=== PATIENT | male | born 1965 | race Caucasian/White ===

== ENCOUNTER 2017-09-25 22:27 | Observation (INO) | payer SELFPAY ==
[2017-09-26 00:35] LABS: Troponin I Less than 0.010 ng/mL (< 0.028)
[2017-09-26 00:41] LABS: Magnesium 2.6 mg/dL (1.6-2.6); Phosphorus 4.1 mg/dL (2.3-4.7)
[2017-09-26] MEDS ORDERED: Sodium Chloride 0.9% 1,000 ML IV SCH (02:38)
[2017-09-26] MEDS ORDERED: Ondansetron HCl/PF 4 MG/2 ML Vial IVP PRN ×2 (02:38→11:30)
[2017-09-26] MEDS ORDERED: Ondansetron ODT 4 MG TAB SL PRN (02:38)
[2017-09-26] MEDS ORDERED: Acetaminophen 325 MG TAB PO PRN ×2 (02:38→05:06)
[2017-09-26 02:44] VITALS: BMI 32.5
[2017-09-26 05:02] LABS: Troponin I Less than 0.010 ng/mL (< 0.028)
[2017-09-26] MEDS ORDERED: Calcium Carbonate 500 MG ChewTAB PO PRN (05:06)
[2017-09-26] MEDS ORDERED: Mag-Al 1200 mg/1200 mg/30 ML UDCUP PO PRN (05:06)
[2017-09-26] MEDS ORDERED: Senokot 8.6 MG TAB PO PRN (05:06)
[2017-09-26] MEDS ORDERED: Nitroglycerin 0.4 MG TAB (25 Tab Bottle) PO PRN (05:06)
[2017-09-26] MEDS ORDERED: Pantoprazole 40 MG VIAL IVP SCH (05:15)
[2017-09-26] MEDS ORDERED: Lidocaine 2% Viscous Solution 10 ML, Aluminum & Magnesium Hydroxide 30 ML SSW SCH (05:15)
--- NOTE | 2017-09-26 06:02 | HP ---
DATE OF ADMISSION: 09/26/2017 CHIEF COMPLAINT: Epigastric discomfort. PRIMARY CARE PHYSICIAN: [facility]. HISTORY OF PRESENT ILLNESS: The patient is a 52-year-old male with COPD who presented to the emergen cy room at [place] with above complaints. Over the last one week, the patient has on and off epigastric cramping that is radiating to his back. The pain improves when he bends over. No nausea, vomiting, diarrhea, constipation, palpitations, s yncope, recent immobilization, travel reported. In the emergency room at [place], his initial vital signs showed temperature 98.1, respiration of 22, pulse rate of 93, blood pressure of 134/88 with O2 saturation 98% on room air. His EKG showed sinus bradycardia without significant ST-T wave changes. Troponins were negative. His CK-MB was 8.2. He received GI cocktail, Motrin, and Pepcid. His pain improved with GI cocktail. He was transferred to this facility for hospital admission. PAST MEDICAL HISTORY: 1. COPD. 2. History of seizure disorder in the remote past. PAST SURGICAL HISTORY: Reviewed with the patient and none. ALLERGIES: No known drug allergies. SOCIAL HISTORY: Patient currently lives at home with his family. No smoking or drug use. He drinks alcohol rarely. FAMILY HISTORY: Patient is adopted. REVIEW OF SYSTEMS: The following complete review of systems was negative, unless otherwise mentioned in the HPI or below: Constitutional: Weight loss or gain, ability to conduct usual activities. Sk in: Rash, itching. Eyes: Double vision, pain. ENT/Mouth: Nose bleeding, neck stiffness, pain, te nderness. Cardiovascular: Palpitations, dyspnea on exertion, orthopnea. Respiratory: Shortness of breath, wheezing, cough, hemoptysis, fever or night sweats. Gastrointestinal: Poor appetite, abdom inal pain, heartburn, nausea, vomiting, constipation, or diarrhea. Genitourinary: Urgency, frequenc y, dysuria, nocturia. Musculoskeletal: Pain, swelling. Neurologic/Psychiatric: Anxiety, depressio n. Allergy/Immunologic: Skin rash, bleeding tendency. PHYSICAL EXAMINATION: VITAL SIGNS: As discussed above. GENERAL: A 52-year-old male in no apparent distress. Denies any symptoms at this time. HEENT: Head: Atraumatic, normocephalic. Sclerae are anicteric. Moist mucous membrane. No oral le neela. NECK: Supple, no JVD appreciated. No carotid bruit. LUNGS: Clear to auscultation bilaterally. No wheezing, rales, or rhonchi. HEART: S1, S2 present. Regular rate and rhythm. No murmur, rubs, or gallops or chest wall tenderne ss noted. ABDOMEN: Mild epigastric tenderness without any rebound or guarding. No costovertebral angle tender ness. Bowel sounds present. EXTREMITIES: No edema or calf tenderness. MUSCULOSKELETAL: No joint swelling or tenderness. There was no paraspinal tenderness. SKIN: Warm and dry. LYMPH NODES: No palpable lymph nodes in the neck. PERIPHERAL VASCULAR: Radial pulses palpable bilaterally. NEUROLOGIC: Grossly nonfocal. Moves all four extremities. PSYCHIATRIC: Alert, awake, oriented x3. LABORATORY AND X-RAY FINDINGS: CBC showed WBC 7.3 with hemoglobin 14.3, hematocrit 42.8, platelet co unt of 250,000. Chemistries showed sodium 140, potassium 4, chloride 106, bicarbonate 23, BUN of 15, creatinine 1.43 with glucose of 106. EKG by my review as discussed above. Chest x-ray by my review was negative for infiltrate. CT scan of the abdomen and pelvis by my review was negative for acute findings. There was a 9-mm stable cystic lesion in the body of the pancreas. There was also some fl uid density collection in the right retroperitoneum. IMPRESSION AND PLAN: 1. Chest/epigastric discomfort with abnormal CK-MB. His symptoms probably GI in origin. Two sets o f troponins have been negative. We will repeat another set. He was advised to discontinue nonsteroi lito anti-inflammatory drugs. He takes BC powder rarely. We will start him on IV PPIs. GI cocktail as needed. IV fluids will be started. The patient will be kept n.p.o. Other possibility for his cr ampy epigastric discomfort could be radiculopathy. 2. Chronic obstructive pulmonary disease. We will resume his home medications with p.r.n. nebulizer treatments. 3. Chronic kidney disease, stage 3, with avoid nephrotoxic agents. 4. Elevated CK and CK-MB. The patient denies any recent muscle exertion. His CK-MB has improved. We will continue IV hydration. 5. History of seizure disorder in remote past. 6. Sinus bradycardia, asymptomatic. Plan of care was discussed with the patient in detail. He stated understanding.
[2017-09-26] MEDS ORDERED: Aspirin 81 mg Enteric Coated Tablet PO SCH (09:00)
[2017-09-26] MEDS ORDERED: Aspirin 325 MG TAB PO SCH (09:00)
[2017-09-26] MEDS ORDERED: Lidocaine 1% PF 5 ML VIAL ONE (10:08)
[2017-09-26] MEDS ORDERED: PROPOFOL 200 MG/20 ML VIAL ONE (10:08)
[2017-09-26] MEDS ORDERED: Promethazine HCl 25 MG/ML VIAL IM PRN (11:30)
[2017-09-26] MEDS ORDERED: Promethazine HCl 25 MG/ML VIAL SLOW IVP PRN (11:30)
--- NOTE | 2017-09-26 11:39 | CON ---
DATE OF CONSULTATION: 09/26/2017 GASTROENTEROLOGY CONSULTATION CHIEF COMPLAINT: Abdominal pain. HISTORY OF PRESENT ILLNESS: Mr. Combs is a 52-year-old man who presented to the emergency room with 1 week history of epigastric to left upper quadrant cramping abdominal pain. The pain is intermitte nt and lasts for minutes to hours at a time and is not affected by eating. He has had normal bowel m ovements, soft daily brown stools without blood in the stool. He has had no weight loss associated w ith this. No prior similar abdominal pain. He has taken BC powder for a toothache a couple of times over the last week which is new for him. He got a GI cocktail in the ER which helped along with renetta e Pepcid. He has had no vomiting or hematemesis. No heartburn at baseline. No dysphagia. PAST MEDICAL HISTORY: COPD, history of seizure disorder. PAST SURGICAL HISTORY: Negative. FAMILY HISTORY: Adopted. ALLERGIES: No known drug allergies. SOCIAL HISTORY: Quit smoking 3 years ago. No drugs. He drinks a couple of beers once a week. MEDICATIONS: Albuterol. REVIEW OF SYSTEMS: Negative x10 systems reviewed except as stated in history of present illness. PHYSICAL EXAMINATION: VITAL SIGNS: Temperature 98.2, pulse 70, and blood pressure 122/62. GENERAL: He is in no acute distress, alert and oriented x3. HEENT: Eyes have no scleral icterus. Oropharynx is clear without lesions. NECK: No cervical or supraclavicular lymphadenopathy. LUNGS: Clear to auscultation bilaterally. HEART: Regular rate and rhythm. ABDOMEN: Has mild tenderness in the epigastric region without guarding. Bowel sounds are present. EXTREMITIES: No lower extremity edema. LABORATORY DATA AND IMAGING DATA: White blood cell count 7.3, hemoglobin 14.3, platelets 250, eosino kareem count is normal. Creatinine 1.43, bilirubin 0.4, AST 44, ALT 49, alkaline phosphatase 74, AST w as 37 back in 01/2017 and 12 in 11/2014. He had a CT scan of the abdomen and pelvis yesterday which showed a 9 mm cystic lesion in the body of the pancreas. CT was otherwise unremarkable. He had a CT scan of the abdomen and pelvis in 01/2017 which was negative. IMPRESSION: 1. Epigastric to left upper quadrant cramping abdominal pain. Rule out peptic ulcer disease or rm ritis. 2. A 9 mm cystic lesion in the body of the pancreas. This is small and unlikely contributing to the current symptoms. Followup imaging on this could be considered in 6 months with contrast enhanced M RI. 3. Abnormal liver function tests. He has had persistent elevation of the AST. RECOMMENDATIONS: 1. Check viral hepatitis panel for hepatitis C antibody, hepatitis A total antibody, hepatitis B zaria face antigen, antibody and core total. Check iron saturation. 2. Proton pump inhibitor. 3. Esophagogastroduodenoscopy today.
--- NOTE | 2017-09-26 12:34 | OP ---
DATE OF PROCEDURE: 09/26/2017 PROCEDURE: Esophagogastroduodenoscopy with biopsy. PREOPERATIVE DIAGNOSIS: Epigastric pain. OPERATIVE NOTE: Informed consent was obtained from the patient. He was sedated with total intraveno us anesthesia. The bite block was placed and the endoscope was advanced easily to the second portion of the duodenum and retroflexion was performed in the stomach. The esophagus had grade B erosive es ophagitis in the distal esophagus with a 3 cm segment of suspected Kenney's esophagus. Biopsies wer e obtained from this area. There was minimal nonerosive gastritis and biopsies were taken to rule ou t H. pylori. This was erythematous nonerosive gastritis in the antrum. The retroflexed views in the stomach were normal. Pylorus was normal and first portion of the duodenum was normal, second portio n of the duodenum had a single 9 mm submucosal nodule. A biopsy was obtained from the site and it di d seem to deflate after that, but there is no significant mucosal overlying abnormality with that. R andom biopsies were also taken from the second portion of the duodenum to rule out celiac disease. IMPRESSION: 1. Erosive grade B to C esophagitis with 3 cm segment of Kenney's esophagus. This is likely the so urce for his symptoms. 2. Minimal nonerosive gastritis, biopsied to rule out Helicobacter pylori. 3. A 9 mm submucosal nodule in the second portion of the duodenum, biopsied. This seem to deflate a fter it was biopsied and unlikely represents any clinically significant lesion. 4. Otherwise normal esophagogastroduodenoscopy. Random duodenal biopsies were taken to rule out leo iac disease. RECOMMENDATIONS: 1. Pantoprazole 40 mg daily. 2. Avoid aspirin/NSAIDs. 3. Advance his diet and should be okay to discharge home today with follow up in the office in 4 wee ks. 4. Check an MRI of the pancreas with IV contrast pancreas protocol in 6 months to evaluate the pancr eatic cyst noted on CT. Again, this is unlikely of significant lesions, but deserves follow up imagi ng. 5. We will check additional blood work to evaluate the elevated AST. 6. Follow up in GI Clinic in 4 weeks.
[2017-09-26 13:01] LABS: Prothrombin Time 13.5 SEC (12.0-14.7)
[2017-09-26 13:18] LABS: Iron Binding Capacity, Total 275 mcg/dL (261-462)
[2017-09-26 13:19] LABS: Iron 108 ug/dL (65-175)
[2017-09-26 13:39] LABS: HBSAg Index 0.15 S/CO (0-0.99); Hep B Surf Ag Non-Reactive S/CO (NonReactive)
[2017-09-26 14:32] VITALS: BP 126/76; TEMP 97.6
[2017-09-26 14:45] LABS: Hep C IgG Ab Reflex HepC Qnt (NonReactive)
[2017-09-26 14:46] LABS: HBSAB Concentration 1514.86 mIU/mL; Hep B Core Total Index 7.55 S/CO (0-0.79); Hep B Surf AB Reactive (NonReactive)
[2017-09-26 14:47] LABS: Hep B Core Total Ab Reactive (NonReactive); Hep C Index 14.79 S/CO (0-0.79)
--- NOTE | 2017-09-26 15:02 | PDOC.PN ---
- Subjective Encounter Start Date: 09/26/17 Encounter Start Time: 10:00 Subjective: no chest pain or palp -: had luq pain prior to arrival -: no lower rib cage pain - Objective Resuscitation Status: Resuscitation Status FULL:Full Resuscitation MAR Reviewed: Yes Vital Signs & Weight: Vital Signs (12 hours) Temp Pulse Resp BP BP Pulse Ox 09/26/17 12:16 97.6 F 66 12 126/76 95 09/26/17 07:23 98.2 F 70 12 122/62 93 L 09/26/17 05:03 97.9 F 61 18 108/56 L 95 Weight Weight 207 lb 11.2 oz I&O: 09/25/17 09/26/17 09/27/17 06:59 06:59 06:59 Intake Total 240 Output Total 275 Balance 240 -275 Phys Exam - Physical Examination HEENT: PERRLA, moist MMs Neck: no JVD, supple Respiratory: no wheezing, no rales Cardiovascular: RRR, no significant murmur Gastrointestinal: soft, non-tender, no distention, positive bowel sounds Musculoskeletal: no edema, pulses present Neurological: non-focal, moves all 4 limbs Psychiatric: normal affect, A&O x 3 Dx/Plan (1) LUQ abdominal pain Code(s): R10.12 - LEFT UPPER QUADRANT PAIN Status: Acute (2) Almazan esophagus Code(s): K22.70 - ALMAZAN'S ESOPHAGUS WITHOUT DYSPLASIA Status: Acute Qualifiers: Almazan's esophagus type: with dysplasia of unspecified degree Qualified Code(s): K22.719 - Almazan's esophagus with dysplasia, unspecified; K22.71 - Almazan's esophagus with dysplasia (3) COPD (chronic obstructive pulmonary disease) Status: Chronic Qualifiers: COPD type: chronic bronchitis - Plan hemostable -: egd shows signs of 3cm almazan's -: bx to be f/u with in 4 weeks -: dc pt home on protonix * .
--- NOTE | 2017-09-26 22:00 | DIS ---
DATE OF ADMISSION: 09/26/2017 DATE OF DISCHARGE: 09/26/2017 DISCHARGE DISPOSITION: To home. PRIMARY DISCHARGE DIAGNOSES: Left upper quadrant pain, likely secondary to erosive grade B to C esophagitis with 3 cm segment of Kenney's esophagus; minimal nonerosive gastritis, Likely Hepatitis C pending titers. PROCEDURES DONE DURING HOSPITALIZATION: The patient has had upper endoscopy, done by Dr. Dusty Choi, which showed erosive grade B to C esophagitis with 3 cm segment of Kenney's esophagus. He was also found to have had minimal nonerosive gastritis. H&H of 14 and 42, platelet count is 250, MCV is 88, BUN 15, creatinine 1.4, glucose 106, three sets of troponin were negative. CK level is 481. CK-MB 8.2. Hepatitis B core total antibody was reactive. Hep C antibody has gone for reflex quantitative titers. CT of the abdomen and pelvis done showed no acute abnormalities, there was stable 9 mm cystic lesion in the body of the pancreas. DISCHARGE MEDICATIONS: Protonix 40 mg p.o. daily, multivitamin 1 tab once daily. ALLERGIES: No known drug allergies. INPATIENT CONSULTS: Dr. Dusty Choi for Gastroenterology. DISCHARGE PLAN: The patient to follow up with Dr. Choi in 4 weeks and primary care physician in 1 week. BRIEF COURSE DURING HOSPITALIZATION: The patient initially went to [facility] for complaints of severe left upper quadrant pain. He has had a CT of the abdomen and pelvis done. There was no acute abnormality seen on it and the patient was transferred here for higher level of care. He has had upper endoscopy done by Dr. Dusty Choi after 3 sets of troponin were negative. This revealed grade B to C esophagitis with 3 cm segment of Kenney' s esophagus. He remained hemodynamically stable and pain free. Biopsies have been obtained from the area and he needs follow up with Dr. Dusty Choi in 4 weeks. Also, the patient's hepatitis panel came back positive for hepatitis C and quantitative titers are pending at present. He is hemodynamically stable and has been advised not to use NSAIDs. Please see a face-to face- documentation for the day of discharge on [facility]. [facility]
[2017-09-29 13:14] LABS: HCV log10 6.844 (.); Hep C PCR-Quant 6980000 IU/mL (.)
== END 2017-09-26 16:00 | disposition home or self-care (01) ==
LOC: ERS 22:27 → 2SW 09-26 00:24
PROVIDERS: ADMIT Internal Medicine; ATTEND Internal Medicine
PROC: 0DB98ZX Excision of Duodenum, Via Natural or Artificial Opening Endoscopic, Diagnostic (ICD-10-PCS; principal; 2017-09-26)
PROC: 0DB78ZX Excision of Stomach, Pylorus, Via Natural or Artificial Opening Endoscopic, Diagnostic (ICD-10-PCS; 2017-09-26)
PROC: 0DB58ZX Excision of Esophagus, Via Natural or Artificial Opening Endoscopic, Diagnostic (ICD-10-PCS; 2017-09-26)
PROC: 0DB48ZX Excision of Esophagogastric Junction, Via Natural or Artificial Opening Endoscopic, Diagnostic (ICD-10-PCS; 2017-09-26)
DX: K29.50 Unspecified chronic gastritis without bleeding (principal); K22.70 Barrett's esophagus without dysplasia; K20.9 Esophagitis, unspecified; J44.9 Chronic obstructive pulmonary disease, unspecified; N18.3 Chronic kidney disease, stage 3 (moderate); R00.1 Bradycardia, unspecified
CPT/HCPCS: 36415; 82553; 83540; 83550; 83735; 84100; 85610; 86704; 86706; 86708; 86803; 87340; 87522; 88305; 88312; 88313; 93005; 94760; 96360; 96361; 96374; C9113; G0378; J2001; J2704

== ENCOUNTER 2022-11-22 14:12 | Emergency (ER) | payer SELFPAY ==
[~2022-11-22 14:12] MED LIST: Iopamidol-370 76% 500 ML MDV (1 ML CHARGE) ONE
[2022-11-22 15:01] LABS: Bacteria/HPF None Seen HPF (None Seen); Bilirubin Negative (Negative); Blood, Urine Negative (Negative); CAUTI Indications for Culture Pelvic or flank pain; Clarity Clear (Clear); Glucose, Urine (Dipstick) Normal (Negative); Ketone, Urine Negative (Negative); Leukocyte Negative Leu/uL (Negative); Nitrite Negative (Negative); Protein, Urine (Dipstick) Negative (Neg-Trace); RBC/HPF None Seen HPF (0-3); Specific Gravity, Urine 1.004 (1.002-1.036); Squamous Epithelial 0-3 HPF (0-3); Urobilinogen Normal mg/dL (Less than 2); WBC/HPF None Seen HPF (0-3); pH, Urine 6.5 (5.0-9.0)
[2022-11-22 15:03] LABS: Urine Culture Reflex No No
[2022-11-22] MEDS ORDERED: Cefepime 2 GM VIAL ONE (17:03)
[2022-11-22 17:28] LABS: #Basophils 0.1 thou/uL (0.0-0.2); #Eosinphils 0.2 thou/uL (0.0-0.7); #Monocytes 0.6 thou/uL (0.11-0.59); #Neutrophils 3.6 thou/uL (1.40-6.50); %Basophils 0.9 % (0.0-1.0); %Eosinophils 2.6 % (0.0-10.0); %Lymphocytes 39.5 % (21.0-51.0); %Monocytes 7.6 % (0.0-10.0); %Neutrophils 49.1 % (42.0-75.0); Hemoglobin 15.8 g/dL (14.0-18.0); Mean Corpuscular HGB CONC 35.4 g/dL (32.0-36.0); Mean Corpuscular Hemoglobin 31.1 pg (27.0-31.0); Mean Corpuscular Volume 87.8 fl (78.0-98.0); Mean Platelet Volume 9.6 fL (7.4-10.4); Platelet Count 221 10x3/uL (130-400); RBC Distribution Width 11.8 % (11.5-14.5); Red Blood Cell (RBC) Count 5.08 mill/uL (4.70-6.10); White Blood Cell (WBC) Count 7.4 10x3/uL (4.8-10.8)
[2022-11-22 17:52] LABS: ALT (SGPT) 23 U/L (8-55); AST (SGOT) 20 U/L (5-34); Albumin 4.5 g/dL (3.5-5.0); Alkaline Phosphatase 70 U/L (40-110); Anion Gap 14 mmol/L (10-20); BUN (Urea Nitrogen) 9 mg/dL (8.4-25.7); Bilirubin, Total 0.6 mg/dL (0.2-1.2); Calc. Creatinine Clearance 0 mL/min (70-130); Calcium 9.8 mg/dL (7.8-10.44); Carbon Dioxide 23 mmol/L (22-29); Chloride 103 mmol/L (98-107); Estimated GFR 76; Globulin 2.9 g/dL (2.4-3.5); Glucose 82 mg/dL (70-105); Lipase 19 U/L (8-78); Potassium 3.9 mmol/L (3.5-5.1); Protein, Total 7.4 g/dL (6.0-8.3); Sodium 136 mmol/L (136-145)
== END 2022-11-22 18:30 | disposition home or self-care (01) ==
LOC: ERS 14:12
DX: R10.12 Left upper quadrant pain (principal); E78.00 Pure hypercholesterolemia, unspecified; E78.5 Hyperlipidemia, unspecified; J44.9 Chronic obstructive pulmonary disease, unspecified; K21.9 Gastro-esophageal reflux disease without esophagitis; Z87.891 Personal history of nicotine dependence; Z79.899 Other long term (current) drug therapy
CPT/HCPCS: 36415; 74177; 80053; 81001; 83690; 85025; J0692; Q9967

== ENCOUNTER 2023-03-07 08:35 | Emergency (ER) | payer SELFPAY ==
[2023-03-07] MEDS ORDERED: Ketorolac Tromethamine 30 MG/ML VIAL ONE ×2 (08:58)
[2023-03-07 09:59] LABS: #Basophils 0.1 thou/uL (0.0-0.2); #Eosinphils 0.3 thou/uL (0.0-0.7); #Monocytes 0.5 thou/uL (0.11-0.59); #Neutrophils 3.4 thou/uL (1.40-6.50); %Basophils 0.7 % (0.0-1.0); %Eosinophils 3.7 % (0.0-10.0); %Lymphocytes 37.3 % (21.0-51.0); %Monocytes 7.8 % (0.0-10.0); %Neutrophils 50.4 % (42.0-75.0); Hematocrit 43.9 % (42.0-52.0); Hemoglobin 15.5 g/dL (14.0-18.0); Mean Corpuscular HGB CONC 35.3 g/dL (32.0-36.0); Mean Corpuscular Volume 87.8 fl (78.0-98.0); Mean Platelet Volume 9.9 fL (7.4-10.4); Platelet Count 227 10x3/uL (130-400); RBC Distribution Width 12.2 % (11.5-14.5); White Blood Cell (WBC) Count 6.8 10x3/uL (4.8-10.8)
[2023-03-07 10:23] LABS: ALT (SGPT) 30 U/L (8-55); AST (SGOT) 21 U/L (5-34); Alkaline Phosphatase 68 U/L (40-110); Anion Gap 14 mmol/L (10-20); BUN (Urea Nitrogen) 11 mg/dL (8.4-25.7); Bilirubin, Total 0.8 mg/dL (0.2-1.2); Calc. Creatinine Clearance 0 mL/min (70-130); Calcium 9.7 mg/dL (7.8-10.44); Carbon Dioxide 23 mmol/L (22-29); Chloride 104 mmol/L (98-107); Estimated GFR 85; Globulin 2.7 g/dL (2.4-3.5); Glucose 92 mg/dL (70-105); Lipase 20 U/L (8-78); Potassium 3.9 mmol/L (3.5-5.1); Protein, Total 7.7 g/dL (6.0-8.3); Sodium 137 mmol/L (136-145)
[2023-03-07 11:09] LABS: Troponin I Less than 0.010 ng/mL (< 0.028)
[2023-03-07] MEDS ORDERED: Iopamidol-370 76% 500 ML MDV (1 ML CHARGE) ONE (14:00)
== END 2023-03-07 12:27 | disposition home or self-care (01) ==
LOC: ERS 08:35
DX: R10.11 Right upper quadrant pain (principal); R10.31 Right lower quadrant pain; E78.00 Pure hypercholesterolemia, unspecified; J44.9 Chronic obstructive pulmonary disease, unspecified; K21.9 Gastro-esophageal reflux disease without esophagitis; Z79.899 Other long term (current) drug therapy; Z87.891 Personal history of nicotine dependence
CPT/HCPCS: 74177; 80053; 82274; 83690; 84484; 85025; 93005; 96374; J1885; Q9967